=== PATIENT | male | born 1980 | race Two or more races ===

== ENCOUNTER 2016-11-15 06:01 | Day surgery (SDC) | payer OTHER ==
[~2016-11-15] VITALS: Ht 170.2 cm; Wt 79.9 kg
[2016-11-15 06:44] VITALS: Ht 170.2 cm; Wt 79.9 kg
[2016-11-15] MEDS ORDERED: LEVO75TA5 PO (06:55)
[2016-11-15] MEDS ORDERED: SENN-53 PO (06:55)
[2016-11-15 07:53] VITALS: BP 118/70; PULSE 76; RESP 21
[2016-11-15] MEDS ORDERED: MIDAZOLAM 1 MG/ML 2 ML INJ ONE ×4 (08:44→15:35)
[2016-11-15] MEDS ORDERED: FENTAnyl 50 MCG/ML VIAL ONE (08:45)
[2016-11-15 09:03] VITALS: BP 117/64; PULSE 76; RESP 19
--- NOTE | 2016-11-15 09:18 | GILP ---
DATE OF PROCEDURE: NAME OF PROCEDURES: Colonoscopy and biopsy. SURGEON: Hector Wing MD PREOPERATIVE DIAGNOSES: Rectal bleeding. POSTOPERATIVE DIAGNOSES 1. Colonoscopy all the way to the cecum and into the terminal ileum. 2. Normal terminal ileum. 3. Small transverse colon polyp was removed using the biopsy forceps. 4. Ulcerative colitis extending up to 40 cm from the anus. 6. Inflammatory polyps in the rectum. 7. Biopsies were taken for histopathology. INDICATION FOR THE PROCEDURE: Mr. Booker Steiner is a 36-year-old male patient who was having pr ofuse rectal bleeding. Patient was scheduled for colonoscopy for further evaluation. The procedure and possible complications were well explained to the patient, he understood and conse nted to the procedure. DESCRIPTION OF PROCEDURE: Under the influence of fentanyl and Versed, the colonoscope was carefully introduced in the rectum and under direct vision it was advanced all the way to the cecum and to th e ileocecal valve into the terminal ileum. FINDINGS: The terminal ileum was normal. The patient was noted to have a small polyp in the transv erse colon and it was removed using the biopsy forceps. The patient was noted to have ulcerative co litis extending up to 40 cm from the anus, and he also had inflammatory polyps in the rectum. Biops ies were taken for histopathology. He tolerated the procedure very well and there was no complication from the procedure. At the end o f the procedure he was awake with stable vital signs, and he was discharged home to the care of his family. IMPRESSION: 1. Colonoscopy all the way to the cecum and into the terminal ileum. 2. Normal terminal ileum. 3. Transverse colon polyp was removed using the biopsy forceps. 4. Ulcerative colitis extending up to 40 cm from the anus with inflammatory polyps in the rectum, a nd biopsies were taken for histopathology. PLAN: 1. Apriso 2 tablets p.o. b.i.d. 2. Hydrocortisone enema at bedtime. 3. Await histopathology reports. Dictated By: HECTOR SEWELL/JAMES Conf#: [id number] DID#: [id number]
== END 2016-11-15 15:08 | disposition home or self-care (01) ==
LOC: GIL 06:01
PROVIDERS: ATTEND Internal Medicine Gastroenterology
DX: K51.90 Ulcerative colitis, unspecified, without complications (principal); K62.1 Rectal polyp; D12.3 Benign neoplasm of transverse colon
CPT/HCPCS: 45380; 88305; J2250; J3010